=== PATIENT | female | born 1940 | race Two or more races ===

== ENCOUNTER 2018-03-28 14:14 | Emergency (ER) | payer MEDICARE, OTHER ==
[2018-03-28 14:27] VITALS: PULSE 73; RESP 16; TEMP 97.6
[2018-03-28] MEDS ORDERED: MORPHINE SULFATE 2 MG/ML SYRINGE IVP STA (14:28)
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
--- NOTE | 2018-03-28 15:29 | CT ---
EXAMINATION TYPE: CT brain mirtha mistry con DATE OF EXAM: 03/28/2018 COMPARISON: None HISTORY: FALL INJURY CT DLP: 1742 mGycm, Automated exposure control for dose reduction was used. CONTRAST: None CT of the brain is performed utilizing 3 mm thick sections through the posterior fossa and 3 mm thick sections through the remaining calvarium. Study is performed within 24 hours of arrival to the hospital. No abnormal hyperdensity is present to suggest an acute intracranial hemorrhage. No mass lesion is evident. No acute infarcts are evident. Ventricles and sulci are appropriate for the patient age. Paranasal sinuses and mastoid air cells within the [id number] are clear. IMPRESSIONS: 1. No acute intracranial process. CT cervical spine. COMPARISON: 05/14/2016 CT of the cervical spine is performed in the axial plane at 2 mm thick sections. Reconstructed image s in the coronal, and sagittal plane are reviewed on the computer. No acute fractures are evident. There is straightening of the vertebral body alignment. There is cervical fusion C3-C6. Residual disc heights are narrowed Vertebral body heights are preserved. There is severe spinal canal stenosis at the craniovertebral junction there are advanced degenerative changes at the C1-C2 level. Endplate spurring is present causing some anterior thecal sac compression most notably C4-5 level on the right paracentral region. Cord contact is likely present. Uncovertebral joint hypertrophy is cont ributing to foraminal stenosis. IMPRESSIONS: 1. No acute changes within the cervical spine are evident. There are advanced degenerative changes wh ich were present previously. Stenosis and thecal sac compression are present. Greatest stenosis is at the craniovertebral junction.
--- NOTE | 2018-03-28 15:50 | XR ---
EXAMINATION TYPE: XR shoulder complete 3 views LT, XR elbow complete 3 views LT, XR wrist complete 4 views LT DATE OF EXAM: 03/28/2018 COMPARISON: NONE HISTORY: 77-year-old female pain after fall FINDINGS: Left shoulder: Capsular swelling at the AC joint but with no abnormal step-off. Mild degenerative spurring at the gl enohumeral joint and some slight bony irregularity at the greater tuberosity. No acute fracture or di slocation seen. Elbow: Some bony spurring at the medial condyle could represent chronic tendinopathy of the common flexor te ndon. No acute fracture, subluxation, or dislocation. No elbow joint effusion. Wrist: Degenerative spurring at the radiocarpal joint. There is negative ulnar variance. Prominent radial si ded soft tissue swelling with possible large ganglion cyst or mass measuring 2.2 cm. No acute fractur e or dislocation. Degenerative spurring at the first CMC joint and triscaphe joint. IMPRESSION: 1. Left shoulder: Capsular swelling in the AC joint could represent a low-grade joint sprain. Mild gl enohumeral joint OA. No acute osseous abnormality seen. 2. Left elbow: Changes of chronic tendinopathy of the common flexor tendon origin. No acute osseous a bnormality seen. 3. Left wrist: Degenerative changes at the radiocarpal joint and base of the thumb. There is suggesti on of a large 2.2 cm mass or ganglion cyst along the radial aspect of the wrist. Consider ultrasound evaluation and orthopedic referral. No acute osseous abnormality seen.
[2018-03-28 16:40] VITALS: BP 189/90
== END 2018-03-28 16:40 | disposition home or self-care (01) ==
LOC: EC 14:14
DX: S46.912A Strain of unspecified muscle, fascia and tendon at shoulder and upper arm level, left arm, initial encounter (principal); S09.90XA Unspecified injury of head, initial encounter; M48.02 Spinal stenosis, cervical region; H91.90 Unspecified hearing loss, unspecified ear; M67.432 Ganglion, left wrist; R40.2412 Glasgow coma scale score 13-15, at arrival to emergency department; M25.532 Pain in left wrist; I10 Essential (primary) hypertension; Z87.891 Personal history of nicotine dependence; Z79.899 Other long term (current) drug therapy; Z88.5 Allergy status to narcotic agent; Z53.20 Procedure and treatment not carried out because of patient's decision for unspecified reasons; W01.190A Fall on same level from slipping, tripping and stumbling with subsequent striking against furniture, initial encounter; Y93.89 Activity, other specified; Y92.009 Unspecified place in unspecified non-institutional (private) residence as the place of occurrence of the external cause
CPT/HCPCS: 70450; 72125; 99284

== ENCOUNTER → 2020-03-21 | Outpatient (CLI) | payer MEDICARE, OTHER | END | disposition home or self-care (01) | LOC: LABWHC1 10:04 | PROVIDERS: ATTEND Ophthalmology | DX: Z01.812 Encounter for preprocedural laboratory examination (principal) | CPT/HCPCS: U0003; C9803 ==

== ENCOUNTER → 2020-04-10 | Outpatient (CLI) | payer MEDICARE, OTHER | END | disposition home or self-care (01) | LOC: LABWHC1 14:35 | PROVIDERS: ATTEND Ophthalmology | DX: Z01.818 Encounter for other preprocedural examination (principal) | CPT/HCPCS: U0003; C9803 ==

== ENCOUNTER 2023-03-26 20:28 | Emergency (ER) | payer MEDICARE, OTHER ==
[2023-03-26 20:35] VITALS: RESP 18; TEMP 98.7
[2023-03-26] MEDS ORDERED: ACETAMINOPHEN TAB 325 MG TAB PO STA (20:57)
--- NOTE | 2023-03-26 21:18 | XR ---
EXAMINATION TYPE: XR AP view pelvis and 2 views bilateral hips DATE OF EXAM: 03/26/2023 COMPARISON: NONE HISTORY: 82-year-old female pain after fall FINDINGS: Degenerative changes lower lumbar spine. Mild degenerative change of both hips. Osteitis pubis. Left- sided pelvic phlebolith. There is osteopenia limiting evaluation. No displaced fractures seen on eith er side. IMPRESSION: There is mild degenerative change bilaterally. Osteopenia limiting the evaluation. No dis placed fracture seen. If the patient is nonweightbearing and more sensitive evaluation is indicated, MRI can be considered.
--- NOTE | 2023-03-26 22:04 | CT ---
EXAMINATION TYPE: CT brain mirtha mistry con DATE OF EXAM: 03/26/2023 COMPARISON: 03/28/2018 HISTORY: 82-year-old female Pain after fall. AMS. CT DLP: 1514.5 mGycm Automated exposure control for dose reduction was used. Technique: Examination of the head was done in axial plane without intravenous contrast. Coronal and sagittal reconstructions performed. CT of the cervical spine was obtained in axial plane without intravenous injection of contrast mater ial. Coronal and sagittal reformatted images were obtained from the axial views for evaluation of f ractures, spinal alignment and canal. FINDINGS: Head: There is no evidence of acute intracranial hemorrhage, acute ischemic changes, mass, mass-effect, or extra-axial fluid collection. There is no effacement of cerebral sulci or basal subarachnoid cister ns. There is no hydrocephalus. There is no midline shift. Adame-white matter distinction is preserv ed. Slight rightward nasal septal deviation. Paranasal sinuses and mastoid air cells well pneumatized. Cervical spine: There is excessive motion throughout which degrades the examination. 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 Additional interbody ankylosis C7-T1. There is advanced degenerative change at the C1-C2 lateral mass articulation. Protuberance of the den s to the anterior rim of the foramen magnum, advanced degenerative change C1 dens articulation, and b cristy ankylosis has now developed between the anterior arch of C1 and the clivus. No acute fracture is identified. Posterior osteophytic ridging is due to variable mild canal narrowing throughout. Possibl e moderate spinal canal stenosis C1-C2. Vertebral moderate to severe neuroforaminal stenoses throughout. The degree of motion limits the eval uation. No obvious acute fracture seen. Sagittal and coronal reformatted images confirm above findings. COMBINED IMPRESSION: 1. No acute intracranial abnormality seen. 2. Progressive degenerative change at both the craniocervical junction and C1-C2 articulation. 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 Solid interbody ankylosi s across C2-C6 levels and additional interbody ankylosis C7-T1. No acute fracture or malalignment finesse beck seen. Extensive patient motion limits the evaluation.
--- NOTE | 2023-03-26 23:07 | ED ---
Fall HPI - General Chief Complaint: Fall Stated Complaint: Fall Time Seen by Provider: 03/26/23 20:47 Source: EMS Mode of arrival: EMS - History of Present Illness Initial Comments: Patient is an 82-year-old female who presents the emergency department for fall. According to EMS patient had an unwitnessed fall in her apartment building. She is not on blood thinners. Patient states she tripped and hit the back of her head on ground. She has mild headache. She also complains of mild hip pain on both sides. Denies visual symptoms, nausea, vomiting, chest pain, shortness of breath. - Related Data Home Medications Medication Instructions Recorded Confirmed Naproxen 500 mg PO BID PRN 03/28/18 03/28/18 Sertraline [Zoloft] 50 mg PO HS 03/28/18 03/28/18 lisinopriL [Prinivil] 20 mg PO HS 03/28/18 03/28/18 tiZANidine [Zanaflex] 4 mg PO Q6H PRN 03/28/18 03/28/18 Previous Rx's Medication Instructions Recorded Acetaminophen Tab [Tylenol] 650 mg PO Q4H PRN #30 tab 03/26/23 Allergies Allergy/AdvReac Type Severity Reaction Status Date / Time morphine AdvReac Nausea & Verified 03/26/23 20:35 Vomiting Review of Systems ROS Statement: Those systems with pertinent positive or pertinent negative responses have been documented in the HPI. ROS Other: All systems not noted in ROS Statement are negative. Past Medical History Past Medical History: Hypertension History of Any Multi-Drug Resistant Organisms: None Reported Past Surgical History: Cholecystectomy, Hysterectomy Additional Past Surgical History / Comment(s): tumor removal, Past Psychological History: No Psychological Hx Reported Smoking Status: Never smoker Past Alcohol Use History: None Reported Past Drug Use History: None Reported General Exam General appearance: alert Head exam: Present: atraumatic, normocephalic, normal inspection Eye exam: Present: normal appearance, PERRL, EOMI. Absent: scleral icterus, conjunctival injection, periorbital swelling Neck exam: Present: normal inspection, full ROM. Absent: tenderness, meningismus, lymphadenopathy Respiratory exam: Present: normal lung sounds bilaterally. Absent: respiratory distress, wheezes, rales, rhonchi, stridor Cardiovascular Exam: Present: regular rate, normal rhythm, normal heart sounds. Absent: systolic murmur, diastolic murmur, rubs, gallop, clicks Left Hip exam: Present: normal inspection, full ROM. Absent: tenderness, swelling Upper Leg exam: Present: normal inspection, full ROM. Absent: tenderness, swelling Right Hip exam: Present: normal inspection, full ROM. Absent: tenderness, swelling Upper Leg exam: Present: normal inspection, full ROM. Absent: tenderness, swelling Neurovascular tendon exam: Present: no vascular compromise Gait: observed and normal Neurological exam: Present: alert Psychiatric exam: Present: normal affect, normal mood Skin exam: Present: warm, dry, intact, normal color. Absent: rash Course Vital Signs 03/26/23 03/26/23 20:29 23:46 Temperature 98.7 F Pulse Rate 87 80 Respiratory 18 18 Rate Blood Pressure 176/79 170/82 O2 Sat by Pulse 97 98 Oximetry Medical Decision Making - Medical Decision Making Was pt. sent in by a medical professional or institution (, PA, HAND BINDER CUTTER, urgent care, hospital, or long-term...) When possible be specific @ -No Did you speak to anyone other than the patient for history (EMS, parent, family, police, friend...)? What history was obtained from this source @EMS Did you review nursing and triage notes (agree or disagree)? Why? @ -I reviewed and agree with nursing and triage notes Were old charts reviewed (outside hosp., previous admission, EMS record, old EKG, old radiological studies, urgent care reports/EKG's, long-term records)? Report findings @ -No old charts were reviewed Differential Diagnosis (chest pain, altered mental status, abdominal pain women, abdominal pain men, vaginal bleeding, weakness, fever, dyspnea, syncope, headache, dizziness, GI bleed, back pain, seizure, CVA, palpatations, mental health)? @ -Differential Headache: Migraine, tension, cluster, carbon monoxide, central venous thrombosis, pension karma temporal arteritis, acute closure glaucoma, intercranial hemorrhage, mastoiditis, sinusitis, head injury, this is not meant to be an all-inclusive list. EKG interpreted by me (3pts min.). @ -As above X-rays interpreted by me (1pt min.). @ -No fracture or dislocation of the bilateral hips and pelvis CT interpreted by me (1pt min.). @ No acute intracranial process, no acute fracture or malalignment in the cervical spine U/S interpreted by me (1pt. min.). @ -None done What testing was considered but not performed or refused? (CT, X-rays, U/S, labs)? Why? @ -None What meds were considered but not given or refused? Why? @ -None Did you discuss the management of the patient with other professionals (professionals i.e. DrCj, PA, HAND BINDER CUTTER, lab, RT, psych nurse, social media content specialist, senior research manager, teacher, affirmative action officer, registered nurse hh case manager)? Give summary @ -No Was smoking cessation discussed for >3mins.? @ -No Was critical care preformed (if so, how long)? @ -No Were there social determinants of health that impacted care today? How? (Homelessness, low income, unemployed, alcoholism, drug addiction, transportation, low edu. Level, literacy, decrease access to med. care, senior living, rehab)? @ -No Was there de-escalation of care discussed even if they declined (Discuss DNR or withdrawal of care, Hospice)? DNR status @ -No What co-morbidities impacted this encounter? (DM, HTN, Smoking, COPD, CAD, Cancer, CVA, ARF, Chemo, Hep., AIDS, mental health diagnosis, sleep apnea, morbid obesity)? @ -None Was patient admitted / discharged? Hospital course, mention meds given and route, prescriptions, significant lab abnormalities, going to OR and other pertinent info. @Patient presented after fall. Physical exam unremarkable. CT interpreted by myself showing no acute intracranial process, no acute fracture or malalignment the cervical spine. X-ray interpreted by myself showing no fracture dislocation of the bilateral hips and pelvis. Patient given Tylenol with improvement of pain. She is able to ambulate without difficulty and will be discharged home with Tylenol Undiagnosed new problem with uncertain prognosis? @ -No Drug Therapy requiring intensive monitoring for toxicity (Heparin, Nitro, Insulin, Cardizem)? @ -No Were any procedures done? @ -No Diagnosis/symptom? @ Fall, hip pain, headache Acute, or Chronic, or Acute on Chronic? @ -[Acute Uncomplicated (without systemic symptoms) or Complicated (systemic symptoms)? @ -Uncomplicated Side effects of treatment? @ -No Exacerbation, Progression, or Severe Exacerbation? @ -No Poses a threat to life or bodily function? How? (Chest pain, [place], [place], pneumonia, PE, COPD, DKA, ARF, appy, cholecystitis, CVA, Diverticulitis, Homicidal, Suicidal, threat to staff... and all critical care pts) @ -No Dr. Burton is my attending Disposition Clinical Impression: Fall, Hip pain, Head ache Disposition: HOME SELF-CARE Condition: Good Instructions (If sedation given, give patient instructions): Fall Prevention for Older Adults (ED), P.R.I.C.E. Treatment (ED) Additional Instructions: Ice injury. Take Tylenol as needed for pain. Follow-up with primary care provider in one to 2 days. Return to the emergency department if you experience new, concerning, or worsening symptoms Prescriptions: Acetaminophen Tab [Tylenol] 650 mg PO Q4H PRN #30 tab PRN Reason: Pain Is patient prescribed a controlled substance at d/c from ED?: No Referrals: None,Stated [Primary Care Provider] - 1-2 days
[2023-03-26 23:48] VITALS: BP 170/82; PULSE 80
== END 2023-03-26 23:47 | disposition home or self-care (01) ==
LOC: EC 20:28
DX: R51.9 Headache, unspecified (principal); M25.552 Pain in left hip; M25.551 Pain in right hip; I10 Essential (primary) hypertension; Z88.5 Allergy status to narcotic agent; Z79.899 Other long term (current) drug therapy; W01.198A Fall on same level from slipping, tripping and stumbling with subsequent striking against other object, initial encounter; Y92.039 Unspecified place in apartment as the place of occurrence of the external cause
CPT/HCPCS: 70450; 72125; 73521; 99285

== ENCOUNTER 2024-08-27 16:16 | Inpatient (IN) | payer MEDICARE, OTHER ==
[2024-08-27 17:48] LABS: Basophils # (A) 0.1 k/uL (0-0.2); Basophils % (A) 1 %; Eosinophils # (A) 0.1 k/uL (0-0.7); Eosinophils % (A) 1 %; HCT 45.8 % (34.0-46.0); HGB 15.3 gm/dL (11.4-16.0); Lymphocytes # (A) 2.1 k/uL (1.0-4.8); Lymphocytes % (A) 24 %; MCH 29.3 pg (25.0-35.0); MCHC 33.5 g/dL (31.0-37.0); MCV 87.5 fL (80.0-100.0); Mean Platelet Volume 6.7; Monocytes # (A) 0.5 k/uL (0-1.0); Monocytes % (A) 5 %; Neutrophils # (A) 5.9 k/uL (1.3-7.7); Neutrophils % (A) 68 %; Platelet Count 354 k/uL (150-450); RBC 5.23 m/uL (3.80-5.40); RDW 13.1 % (11.5-15.5); WBC 8.7 k/uL (3.8-10.6)
[2024-08-27 18:06] LABS: ALT 26 U/L (4-34); AST 28 U/L (14-36); African American GFR (CKD) 36 (>60 ml/min/1.73 sqM); Albumin 4.3 g/dL (3.5-5.0); Alkaline Phosphatase 44 U/L (38-126); Anion Gap 17 mmol/L; Blood Urea Nitrogen 31 mg/dL (7-17); Calcium 9.8 mg/dL (8.4-10.2); Carbon Dioxide 17 mmol/L (22-30); Chloride 105 mmol/L (98-107); Creatine Kinase 87 U/L (30-135); Glucose 107 mg/dL (74-99); Magnesium 1.9 mg/dL (1.6-2.3); Non-African American GFR(CKD) 31 (>60 ml/min/1.73 sqM); Potassium 3.5 mmol/L (3.5-5.1); Sodium 139 mmol/L (137-145); Total Bilirubin 1.8 mg/dL (0.2-1.3); Total Protein 6.9 g/dL (6.3-8.2)
[2024-08-27 18:09] LABS: Prothrombin Time 11.3 sec (10.0-12.5)
[2024-08-27 18:10] LABS: Appearance,Urine Cloudy (Clear); Bacteria,Urine Many /hpf; Bilirubin,Urine Negative (Negative); Blood,Urine Negative (Negative); Color,Urine Yellow; Glucose,Urine (UA) Negative (Negative); Hyaline Casts,Urine 27 /lpf (0-2); Ketones,Urine Negative (Negative); Leukocyte Esterase,Urine Small (Negative); Mucus,Urine Many /hpf; Nitrite,Urine Positive (Negative); PH, Urine 5.5 (5.0-8.0); Protein,Urine 1+ (Negative); RBC,Urine <1 /hpf (0-5); Specific Gravity,Urine 1.026 (1.001-1.035); Squamous Epithelial Cell,Urine 3 /hpf (0-4); Urobilinogen,Urine <2.0 mg/dL (<2.0); WBC,Urine 22 /hpf (0-5)
[2024-08-27 18:11] LABS: Partial Thromboplastin Time 21.8 sec (22.0-30.0)
--- NOTE | 2024-08-27 18:35 | XR ---
EXAMINATION TYPE: XR chest 2V DATE OF EXAM: 08/27/2024 6:20 PM COMPARISON: None CLINICAL INDICATION: Female, 83 years old with history of Weakness; [facility] TECHNIQUE: XR chest 2V Frontal and lateral views of the chest. FINDINGS: Lungs/Pleura: There is no evidence of pleural effusion, focal consolidation, or pneumothorax. Pulmonary vascularity: Unremarkable. Heart/mediastinum: Cardiomediastinal silhouette is unremarkable. Musculoskeletal: Degenerative changes of the shoulder joints. IMPRESSION: No acute cardiopulmonary disease/process. [facility], , 08/27/2024 6:32 PM
--- NOTE | 2024-08-27 18:36 | XR ---
EXAMINATION TYPE: XR shoulder complete LT DATE OF EXAM: 08/27/2024 6:21 PM COMPARISON: None CLINICAL INDICATION: Female, 83 years old with history of pain; PH[facility], pain TECHNIQUE: XR shoulder complete LT; examined in AP, internally rotated and scapular Y projections. FINDINGS: No evidence of acute osseous pathology, joint dislocation, or soft tissue swelling. The remaining po rtions of the visualized chest are unremarkable. Degeneration changes of the acromion, distal clavic le with osteophyte formation. There is osteophyte formation of the glenoid and humeral head. There is joint space narrowing of glenohumeral joint with [id number] articulation of the glenohumeral joint . IMPRESSION: 1. No acute osseous pathology. 2. Severe left shoulder osteoarthrosis. [facility], , 08/27/2024 6:33 PM
[2024-08-27] MEDS: cefTRIAXone IN SWFI 1,000 MG/10 ML SYRINGE IVP STA (18:54)
[2024-08-27] MEDS: SODIUM CHLORIDE 0.9% 1,000 ML IV STA (18:55)
[2024-08-27] MEDS: ACETAMINOPHEN TAB 500 MG TAB PO STA (18:58)
[2024-08-27] MEDS: LORazepam 2 MG/ML INJ IV STA (18:58)
--- NOTE | 2024-08-27 19:07 | ED ---
Nausea/Vomiting/Diarrhea HPI - General Chief complaint: Nausea/Vomiting/Diarrhea Stated complaint: NVD Time Seen by Provider: 08/27/24 16:27 Source: patient, family, EMS, RN notes reviewed Mode of arrival: EMS Limitations: altered mental status - History of Present Illness Initial comments: This is an 83-year-old female who presents to the emergency department for diarrhea and altered mental status. Patient lives at [facility] and EMS was called as the patient has reportedly been increasingly agitated and violent with staff. She is also increasingly confused over the last couple of days. They also report the patient having diarrhea, but do not give specifics. Patient is very irritable and agitated at this time. Reports diarrhea but does not give any additional history. She is complaining of left shoulder pain. MD complaint: diarrhea - Related Data Home Medications Medication Instructions Recorded Confirmed Naproxen 500 mg PO BID PRN 03/28/18 03/28/18 Sertraline [Zoloft] 50 mg PO HS 03/28/18 03/28/18 lisinopriL [Prinivil] 20 mg PO HS 03/28/18 03/28/18 tiZANidine [Zanaflex] 4 mg PO Q6H PRN 03/28/18 03/28/18 Previous Rx's Medication Instructions Recorded Acetaminophen Tab [Tylenol] 650 mg PO Q4H PRN #30 tab 03/26/23 Allergies Allergy/AdvReac Type Severity Reaction Status Date / Time morphine AdvReac Nausea & Verified 08/27/24 16:25 Vomiting Review of Systems ROS Statement: Those systems with pertinent positive or pertinent negative responses have been documented in the HPI. ROS Other: All systems not noted in ROS Statement are negative. Past Medical History Past Medical History: Hypertension Additional Past Medical History / Comment(s): cerebral palsy History of Any Multi-Drug Resistant Organisms: None Reported Past Surgical History: Cholecystectomy, Hysterectomy Additional Past Surgical History / Comment(s): tumor removal, Past Psychological History: No Psychological Hx Reported Smoking Status: Never smoker Past Alcohol Use History: None Reported Past Drug Use History: None Reported General Exam Limitations: altered mental status General appearance: alert, in no apparent distress Head exam: Present: atraumatic, normocephalic, normal inspection Respiratory exam: Present: normal lung sounds bilaterally. Absent: respiratory distress, wheezes, rales, rhonchi, stridor Cardiovascular Exam: Present: regular rate, normal rhythm GI/Abdominal exam: Present: soft, normal bowel sounds. Absent: distended, tenderness, guarding, rebound, rigid Neurological exam: Present: alert Psychiatric exam: Present: normal affect, normal mood Skin exam: Present: warm, dry, intact, normal color. Absent: rash Course Vital Signs 08/27/24 08/27/24 16:17 18:52 Pulse Rate 87 80 Respiratory 20 18 Rate Blood Pressure 157/75 O2 Sat by Pulse 97 98 Oximetry Procedures - [place] Protocol (Time Out) Nurse: Krystin Estrada Medical Decision Making - Medical Decision Making This is an 83-year-old female who presents to the emergency department for conf usion and diarrhea. Was pt. sent in by a medical professional or institution? @ -No Did you speak to anyone other than the patient for history? @ -EMS and staff at [facility] provided the majority of the history. Did you review nursing and triage notes? @ -Yes, and I agree, it is accurate with regards to the patient's symptoms. Were old charts reviewed? @ -No Differential Diagnosis? @ -Differential Altered Mental Status: Hypoglycemia, DKA, hypercapnia, ETOH, overdose, CO poisoning, trauma, myxedema coma, HTN encephalopathy, infection, encephalitis, psychosis, intercranial hemorrhage, hepatic encephalopathy, meningitis, CVA, this is not meant to be an all-inclusive list EKG interpreted by me (3pts min.)? @ -EKG interpreted by me demonstrating the following: Sinus rhythm. Ventricular rate 83 bpm, ME interval 146 ms, QRS duration 119 ms, QTc 443 ms. X-rays interpreted by me (1pt min.)? @ -Chest x-ray obtained, my interpretation identifies no localized consolidations or infiltrates. X-ray of the left shoulder obtained. My interpretation identifies no acute fractures. CT interpreted by me (1pt min.)? @ -CT scan of the brain obtained. My interpretation identifies no evidence of acute intracranial hemorrhage. U/S interpreted by me (1pt. min.)? @ -Not obtained What testing was considered but not performed? (CT, X-rays, U/S, labs)? Why? @ -None What meds were considered but not given? Why? @ -None Did you discuss the management of the patient with other professionals? @ -Yes, Juana Jones with [facility], who accepts the patient for admission Did you reconcile home meds? @ -No Was smoking cessation discussed for >3mins.? @ -No Was critical care preformed (if so, how long)? @ -No Were there social determinants of health that impacted care today? How? (Homelessness, low income, unemployed, alcoholism, drug addiction, transportation, low edu. Level, literacy, decrease access to med. care, long-term, rehab)? @ -No Was there de-escalation of care discussed even if they declined? (Discuss DNR or withdrawal of care, Hospice)? @ -No What co-morbidities impacted this encounter? (DM, HTN, Smoking, COPD, CAD, Cancer, CVA, Hep., AIDS, mental health diagnosis, sleep apnea, morbid obesity)? @ -Cerebral palsy, HTN Was patient admitted / discharged? @ -Admitted. Lab work demonstrates signs of dehydration and an elevated lactic acid of 2.7. Urinalysis consistent with infection and urine was sent for culture. X-ray of the chest and left shoulder revealed no acute process. CT sc an of the brain obtained as well revealing no acute findings. Patient treated with IV fluids and started on 1 g of ceftriaxone daily. We tried to contact the facility where patient lives, [facility]. However, we were not able to get anybody on the phone to see if patient could be sent back and they were able to care for her in her current state. She also does not have a castro or ability to get into her apartment there. Patient subsequently admitted to medicine for altered mental status with UTI. Case discussed with ED attending Dr. Burton. Undiagnosed new problem with uncertain prognosis? @ -None Drug Therapy requiring intensive monitoring for toxicity (Heparin, Nitro, Insulin, Cardizem)? @ -None Were any procedures done? @ -None Diagnosis/symptom? @ -UTI, altered mental status Acute, or Chronic, or Acute on Chronic? @ -Acute Uncomplicated (without systemic symptoms) or Complicated (systemic symptoms)? @ -Complicated Side effects of treatment? @ -None Exacerbation, Progression, or Severe Exacerbation] @ -Not applicable Poses a threat to life or bodily function? @ -Yes, her behavior is interfering with her ability to function - Lab Data Result diagrams: 08/27/24 17:36 08/27/24 17:36 Lab Results 01/08/27/24 08/27/24 Range/Units 07:45 17:36 17:36 WBC 8.7 (3.8-10.6) k/uL RBC 5.23 (3.80-5.40) m/uL Hgb 15.3 (11.4-16.0) gm/dL Hct 45.8 (34.0-46.0) % MCV 87.5 (80.0-100.0) fL MCH 29.3 (25.0-35.0) pg MCHC 33.5 (31.0-37.0) g/dL RDW 13.1 (11.5-15.5) % Plt Count 354 (150-450) k/uL MPV 6.7 Neutrophils % 68 % Lymphocytes % 24 % Monocytes % 5 % Eosinophils % 1 % Basophils % 1 % Neutrophils # 5.9 (1.3-7.7) k/uL Lymphocytes # 2.1 (1.0-4.8) k/uL Monocytes # 0.5 (0-1.0) k/uL Eosinophils # 0.1 (0-0.7) k/uL Basophils # 0.1 (0-0.2) k/uL PT 11.3 (10.0-12.5) sec INR 1.0 (<1.2) APTT 21.8 L (22.0-30.0) sec Sodium (137-145) mmol/L Potassium (3.5-5.1) mmol/L Chloride (98-107) mmol/L Carbon Dioxide (22-30) mmol/L Anion Gap mmol/L BUN (7-17) mg/dL Creatinine (0.52-1.04) mg/dL Est GFR (CKD-EPI)AfAm (>60 ml/min/1.73 sqM) Est GFR (CKD-EPI)NonAf (>60 ml/min/1.73 sqM) Glucose (74-99) mg/dL Lactic Ac Sepsis Rflx Plasma Lactic Acid Carlos Manuel (0.7-2.0) mmol/L Calcium (8.4-10.2) mg/dL Phosphorus (2.5-4.5) mg/dL Magnesium (1.6-2.3) mg/dL Total Bilirubin (0.2-1.3) mg/dL AST (14-36) U/L ALT (4-34) U/L Alkaline Phosphatase (38-126) U/L Creatine Kinase (30-135) U/L Troponin I (0.000-0.034) ng/mL Total Protein (6.3-8.2) g/dL Albumin (3.5-5.0) g/dL Urine Color Yellow Urine Appearance Cloudy H (Clear) Urine pH 5.5 (5.0-8.0) Ur Specific [place] 1.026 (1.001-1.035) Urine Protein 1+ H (Negative) Urine Glucose (UA) Negative (Negative) Urine Ketones Negative (Negative) Urine Blood Negative (Negative) Urine Nitrite Positive H (Negative) Urine Bilirubin Negative (Negative) Urine Urobilinogen <2.0 (<2.0) mg/dL Ur Leukocyte Esterase Small H (Negative) Urine RBC <1 (0-5) /hpf Urine WBC 22 H (0-5) /hpf Ur Squamous Epith Cells 3 (0-4) /hpf Urine Bacteria Many H (None) /hpf Hyaline Casts 27 H (0-2) /lpf Urine Mucus Many H (None) /hpf 08/27/24 08/27/24 08/27/24 Range/Units 17:36 17:36 17:36 WBC (3.8-10.6) k/uL RBC (3.80-5.40) m/uL Hgb (11.4-16.0) gm/dL Hct (34.0-46.0) % MCV (80.0-100.0) fL MCH (25.0-35.0) pg MCHC (31.0-37.0) g/dL RDW (11.5-15.5) % Plt Count (150-450) k/uL MPV Neutrophils % % Lymphocytes % % Monocytes % % Eosinophils % % Basophils % % Neutrophils # (1.3-7.7) k/uL Lymphocytes # (1.0-4.8) k/uL Monocytes # (0-1.0) k/uL Eosinophils # (0-0.7) k/uL Basophils # (0-0.2) k/uL PT (10.0-12.5) sec INR (<1.2) APTT (22.0-30.0) sec Sodium 139 (137-145) mmol/L Potassium 3.5 (3.5-5.1) mmol/L Chloride 105 (98-107) mmol/L Carbon Dioxide 17 L (22-30) mmol/L Anion Gap 17 mmol/L BUN 31 H (7-17) mg/dL Creatinine 1.54 H (0.52-1.04) mg/dL Est GFR (CKD-EPI)AfAm 36 (>60 ml/min/1.73 sqM) Est GFR (CKD-EPI)NonAf 31 (>60 ml/min/1.73 sqM) Glucose 107 H (74-99) mg/dL Lactic Ac Sepsis Rflx Plasma Lactic Acid Carlos Manuel 2.4 H* (0.7-2.0) mmol/L Calcium 9.8 (8.4-10.2) mg/dL Phosphorus 3.0 (2.5-4.5) mg/dL Magnesium 1.9 (1.6-2.3) mg/dL Total Bilirubin 1.8 H (0.2-1.3) mg/dL AST 28 (14-36) U/L ALT 26 (4-34) U/L Alkaline Phosphatase 44 (38-126) U/L Creatine Kinase 87 (30-135) U/L Troponin I <0.012 (0.000-0.034) ng/mL Total Protein 6.9 (6.3-8.2) g/dL Albumin 4.3 (3.5-5.0) g/dL Urine Color Urine Appearance (Clear) Urine pH (5.0-8.0) Ur Specific [place] (1.001-1.035) Urine Protein (Negative) Urine Glucose (UA) (Negative) Urine Ketones (Negative) Urine Blood (Negative) Urine Nitrite (Negative) Urine Bilirubin (Negative) Urine Urobilinogen (<2.0) mg/dL Ur Leukocyte Esterase (Negative) Urine RBC (0-5) /hpf Urine WBC (0-5) /hpf Ur Squamous Epith Cells (0-4) /hpf Urine Bacteria (None) /hpf Hyaline Casts (0-2) /lpf Urine Mucus (None) /hpf 08/27/24 Range/Units 18:20 WBC (3.8-10.6) k/uL RBC (3.80-5.40) m/uL Hgb (11.4-16.0) gm/dL Hct (34.0-46.0) % MCV (80.0-100.0) fL MCH (25.0-35.0) pg MCHC (31.0-37.0) g/dL RDW (11.5-15.5) % Plt Count (150-450) k/uL MPV Neutrophils % % Lymphocytes % % Monocytes % % Eosinophils % % Basophils % % Neutrophils # (1.3-7.7) k/uL Lymphocytes # (1.0-4.8) k/uL Monocytes # (0-1.0) k/uL Eosinophils # (0-0.7) k/uL Basophils # (0-0.2) k/uL PT (10.0-12.5) sec INR (<1.2) APTT (22.0-30.0) sec Sodium (137-145) mmol/L Potassium (3.5-5.1) mmol/L Chloride (98-107) mmol/L Carbon Dioxide (22-30) mmol/L Anion Gap mmol/L BUN (7-17) mg/dL Creatinine (0.52-1.04) mg/dL Est GFR (CKD-EPI)AfAm (>60 ml/min/1.73 sqM) Est GFR (CKD-EPI)NonAf (>60 ml/min/1.73 sqM) Glucose (74-99) mg/dL Lactic Ac Sepsis Rflx Y Plasma Lactic Acid Carlos Manuel (0.7-2.0) mmol/L Calcium (8.4-10.2) mg/dL Phosphorus (2.5-4.5) mg/dL Magnesium (1.6-2.3) mg/dL Total Bilirubin (0.2-1.3) mg/dL AST (14-36) U/L ALT (4-34) U/L Alkaline Phosphatase (38-126) U/L Creatine Kinase (30-135) U/L Troponin I (0.000-0.034) ng/mL Total Protein (6.3-8.2) g/dL Albumin (3.5-5.0) g/dL Urine Color Urine Appearance (Clear) Urine pH (5.0-8.0) Ur Specific [place] (1.001-1.035) Urine Protein (Negative) Urine Glucose (UA) (Negative) Urine Ketones (Negative) Urine Blood (Negative) Urine Nitrite (Negative) Urine Bilirubin (Negative) Urine Urobilinogen (<2.0) mg/dL Ur Leukocyte Esterase (Negative) Urine RBC (0-5) /hpf Urine WBC (0-5) /hpf Ur Squamous Epith Cells (0-4) /hpf Urine Bacteria (None) /hpf Hyaline Casts (0-2) /lpf Urine Mucus (None) /hpf - Radiology Data Radiology results: report reviewed, image reviewed Disposition Clinical Impression: UTI (urinary tract infection), Altered mental status Disposition: ADMITTED IP TO THIS HOSP
--- NOTE | 2024-08-27 19:58 | CT ---
EXAMINATION TYPE: CT brain wo con DATE OF EXAM: 08/27/2024 7:51 PM COMPARISON: 03/26/2023. CLINICAL INDICATION: Female, 83 years old with history of Confusion, AMS. Confused. TECHNIQUE: Brain: Axial CT images of the brain were obtained with coronal and sagittal reformats created and rev iewed. Contrast used: None. Oral contrast used: None. CT DLP: 1299.4 mGycm, Automated exposure control for dose reduction was used. FINDINGS: Brain: Extra-axial spaces: No abnormal extra-axial fluid collections. Ventricular system: Dilatation in proportion to cerebral atrophy. Cerebral parenchyma: Cerebral atrophy. No acute intraparenchymal hemorrhage or mass effect. The martinez -white junction is well differentiated. Scattered hypoattenuating areas are seen within the white mat ter. Cerebellum: Unremarkable. Mass effect: No evidence of midline shift. Intracranial vasculature: unremarkable Soft tissues: Normal. Calvarium/osseous structures: No depressed skull fracture. Paranasal sinuses and mastoid air cells: Mild scattered paranasal sinus disease. Visualized orbits: Orbital contents are intact. IMPRESSION: 1. No acute intracranial process. 2. Nonspecific white matter changes, likely secondary to chronic small vessel ischemic disease. [facility], , 08/27/2024 7:56 PM
[2024-08-27] MEDS ORDERED: NALOXONE 0.4 MG/ML 1 ML VIAL IV PRN (20:27)
[2024-08-27] MEDS: SODIUM CHLORIDE 0.9% 1,000 ML IV SCH (21:16)
[2024-08-28] MEDS: LORazepam 0.5 MG TAB PO PRN (06:03)
[2024-08-28 08:44] LABS: African American GFR (CKD) 40 (>60 ml/min/1.73 sqM); Anion Gap 14 mmol/L; Blood Urea Nitrogen 29 mg/dL (7-17); Calcium 9.1 mg/dL (8.4-10.2); Carbon Dioxide 14 mmol/L (22-30); Chloride 108 mmol/L (98-107); Glucose 123 mg/dL (74-99); Non-African American GFR(CKD) 35 (>60 ml/min/1.73 sqM); Potassium 3.4 mmol/L (3.5-5.1); Sodium 136 mmol/L (137-145)
--- NOTE | 2024-08-28 09:22 | P.HPIM ---
History of Present Illness This is a pleasant 83 years old female with past medical history of multiple medical problems. Patient has history of cerebral palsy. She is from [facility]. She was brought because of fall and possible diarrhea for 2 days. When I asked the patient why she came to the hospital she said I do not know maybe I fell Patient can of poor historian, she does not know where she is but she can tell it is 2024. She thought the president is ley, patient also have muffled speech related to her history of cerebral palsy which limits her ability to communicate. However patient calm and follow commands easily. She is little agitated. She denies any specific symptoms. No chest pain or dyspnea. No GI symptoms she denies diarrhea abdominal pain or vomiting although on admission states that she has diarrhea. Also she denies urinary complaint like urgency or dysuria. No headache or dizziness or new weakness or numbness Patient denies smoking or illicit drugs Patient sitting at the bed age, slightly agitated and anxious and she keeps her left upper extremity hanging lower than the right side. On admission patient hemodynamically stable and afebrile She has elevated creatinine 1.5 with baseline 0.9 and 1.0. Rest of labs including CBC, BMP, LFT, INR, troponin were unremarkable Urine analysis is slightly abnormal the suspicion of infection is there but patient is asymptomatic Elevated lactic acid at 2.4 came back to normal at 1.1 Chest x-ray is negative Shoulder x-ray showing severe shoulder osteoarthritis EKG showing sinus rhythm at [address]-T changes CT of the brain is negative for acute process Of note the patient has to contact her sister and she remembered her name Mari Hernandez. I called Ms. Guerra her sister and she told me she is in [place] so she cannot come and see her but then the line went off, I called again and left a message to call back Review of Systems Review of systems CONSTITUTIONAL: No fever, no malaise, no fatigue. HEENT: No recent visual problems or hearing problems. Denied any sore throat. CARDIOVASCULAR: No orthopnea, PND, no palpitations, no syncope. PULMONARY: No shortness of breath, no cough, no hemoptysis. GASTROINTESTINAL: No diarrhea, no nausea, no vomiting, no abdominal pain. Normoactive bowel sounds. NEUROLOGICAL: No headaches, no weakness, no numbness. HEMATOLOGICAL: Denies any bleeding or petechiae. GENITOURINARY: Denies any burning micturition, frequency, or urgency. MUSCULOSKELETAL/RHEUMATOLOGICAL: Denies any joint pain, swelling, or any muscle pain. ENDOCRINE: Denies any polyuria or polydipsia. Past Medical History Past Medical History: Hypertension Additional Past Medical History / Comment(s): cerebral palsy History of Any Multi-Drug Resistant Organisms: None Reported Past Surgical History: Cholecystectomy, Hysterectomy Additional Past Surgical History / Comment(s): tumor removal, Past Psychological History: No Psychological Hx Reported Smoking Status: Never smoker Past Alcohol Use History: None Reported Past Drug Use History: None Reported Medications and Allergies Home Medications Medication Instructions Recorded Confirmed Type No Known Home Medications 08/28/24 08/28/24 History Allergies Allergy/AdvReac Type Severity Reaction Status Date / Time morphine AdvReac Nausea & Verified 08/28/24 09:20 Vomiting Physical Exam Vitals: Vital Signs Temp Pulse Pulse Resp BP BP Pulse Ox 08/28/24 08:04 82 20 104/84 96 08/28/24 02:00 98.3 F 76 18 129/85 98 08/27/24 18:52 80 18 157/75 98 08/27/24 16:17 87 20 97 Intake and Output 08/27/24 08/28/24 08/28/24 22:59 06:59 14:59 Intake Total 440 Balance 440 Intake: Oral 440 Other: # Voids 5 Weight 79.379 kg -GENERAL: The patient is alert and oriented x1-2 partial, not in any acute distress. Well developed, well nourished. HEENT: Pupils are round and equally reacting to light. EOMI. No scleral icterus. No conjunctival pallor. Normocephalic, atraumatic. No pharyngeal erythema. No thyromegaly. CARDIOVASCULAR: S1 and S2 present. No murmurs, rubs, or gallops. PULMONARY: Chest is clear to auscultation, no wheezing , no crackles. ABDOMEN: Soft, nontender, nondistended, normoactive bowel sounds. No palpable organomegaly. -MUSCULOSKELETAL: No joint swelling or deformity. 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 NEUROLOGICAL: Gross neurological examination did not reveal any focal deficits. SKIN: No rashes. no petechiae. Results CBC & Chem 7: 08/27/24 17:36 08/28/24 07:54 Labs: Abnormal Lab Results - Last 24 Hours (Table) 08/27/24 08/27/24 08/27/24 Range/Units 07:45 17:36 17:36 APTT 21.8 L (22.0-30.0) sec Sodium (137-145) mmol/L Potassium (3.5-5.1) mmol/L Chloride (98-107) mmol/L Carbon Dioxide 17 L (22-30) mmol/L BUN 31 H (7-17) mg/dL Creatinine 1.54 H (0.52-1.04) mg/dL Glucose 107 H (74-99) mg/dL Plasma Lactic Acid Carlos Manuel (0.7-2.0) mmol/L Total Bilirubin 1.8 H (0.2-1.3) mg/dL Urine Appearance Cloudy H (Clear) Urine Protein 1+ H (Negative) Urine Nitrite Positive H (Negative) Ur Leukocyte Esterase Small H (Negative) Urine WBC 22 H (0-5) /hpf Urine Bacteria Many H (None) /hpf Hyaline Casts 27 H (0-2) /lpf Urine Mucus Many H (None) /hpf 08/27/24 08/28/24 Range/Units 17:36 07:54 APTT (22.0-30.0) sec Sodium 136 L (137-145) mmol/L Potassium 3.4 L (3.5-5.1) mmol/L Chloride 108 H (98-107) mmol/L Carbon Dioxide 14 L (22-30) mmol/L BUN 29 H (7-17) mg/dL Creatinine 1.42 H (0.52-1.04) mg/dL Glucose 123 H (74-99) mg/dL Plasma Lactic Acid Carlos Manuel 2.4 H* (0.7-2.0) mmol/L Total Bilirubin (0.2-1.3) mg/dL Urine Appearance (Clear) Urine Protein (Negative) Urine Nitrite (Negative) Ur Leukocyte Esterase (Negative) Urine WBC (0-5) /hpf Urine Bacteria (None) /hpf Hyaline Casts (0-2) /lpf Urine Mucus (None) /hpf Assessment and Plan Assessment: Possible fall at half-way Acute kidney injury Possible diarrhea on admission, could be viral with associated dehydration looks improved now we will keep monitoring Asymptomatic bacteriuria rather than UTI as patient with no significant symptoms Left shoulder tenderness and x-ray showing severe osteoarthrosis Cerebral palsy. Patient is poor historian Plan: I left a message for the sister to call back we will try to contact and talk to her later Continue with gentle IV hydration Check a bladder scan Recheck urine analysis We tried to contact the sister. Patient also has tell us to contact her sister but no success so far. Will check for PT/OT Labs and medication were reviewed.. Continue same treatment. Continue with symptomatic treatment. Resume home medication. Monitor labs and vitals. DVT and GI prophylaxis. Further recommendations as per clinical course of the patient DVT prophylaxis: Subcutaneous heparin GI Prophylaxis: Pepcid PT/OT: Pending Prognosis is guarded
[2024-08-28] MEDS: POTASSIUM CHLORIDE ER 20 MEQ TAB.ER PO STA ×2 (09:29→12:37)
[2024-08-28] MEDS: PANTOPRAZOLE 40 MG/10 ML VIAL IV SCH (09:33)
--- NOTE | 2024-08-28 11:45 | P.NPCON ---
History of Present Illness - Reason for Consult acute renal failure - History of Present Illness Reason for consultation: Acute kidney injury History of present is: Patient is 83-year-old female seen in renal consultation for acute kidney injury. Patient's creatinine admission was 1.54 and is 1.42 today. Creatinine noted to be 1.1 in July 2018. Patient was brought to the hospital due to altered mental status. She was noted to be agitated and violent with the staff where she resides. Patient is a poor historian. I do not see any home medications on her medication list. She is currently receiving normal saline at 75 cc an hour. She did receive a liter bolus in the ER. Hemodynamically st able. She is on room air. Afebrile. Chest x-ray showed no acute cardiopulmonary process. Brain CT showed no acute intracranial process she has been voiding per the RN. She does not have a [place] catheter. It is noted that she fell at her snf and also was having diarrhea. Vital signs are stable. General: No acute distress. HEENT: Head exam is unremarkable. LUNGS: No audible rhonchi or wheezes. HEART: Rate and Rhythm are regular. ABDOMEN: No distention. EXTREMITITES: No edema. Past Medical History Past Medical History: Hypertension Additional Past Medical History / Comment(s): cerebral palsy History of Any Multi-Drug Resistant Organisms: None Reported Past Surgical History: Cholecystectomy, Hysterectomy Additional Past Surgical History / Comment(s): tumor removal, Past Psychological History: No Psychological Hx Reported Smoking Status: Never smoker Past Alcohol Use History: None Reported Past Drug Use History: None Reported Medications and Allergies Home Medications Medication Instructions Recorded Confirmed Type No Known Home Medications 08/28/24 08/28/24 History Allergies Allergy/AdvReac Type Severity Reaction Status Date / Time morphine AdvReac Nausea & Verified 08/28/24 09:20 Vomiting Physical Exam Vitals: Vital Signs Temp Pulse Pulse Resp BP BP Pulse Ox 08/28/24 09:34 82 20 97 08/28/24 08:04 82 20 104/84 96 08/28/24 02:00 98.3 F 76 18 129/85 98 08/27/24 18:52 80 18 157/75 98 08/27/24 16:17 87 20 97 Intake and Output 08/27/24 08/28/24 08/28/24 22:59 06:59 14:59 Intake Total 440 Balance 440 Intake: Oral 440 Other: # Voids 5 Weight 79.379 kg Results - Lab Results Most recent lab results Calcium 9.1 mg/dL (8.4-10.2) 08/28/24 07:54 Phosphorus 3.0 mg/dL (2.5-4.5) 08/27/24 17:36 Magnesium 1.9 mg/dL (1.6-2.3) 08/27/24 17:36 08/27/24 17:36 08/28/24 07:54 Assessment and Plan Plan: Assessment: 1. Acute kidney injury secondary to ATN secondary to hypovolemia. Creatinine 1.54 on admission and is 1.42 today. Creatinine 1.1 in July 2018. UA suggestive of UTI. 2. Acute cystitis on antibiotics. 3. Hypokalemia from poor intake. Replaced. 4. Metabolic acidosis secondary to acute kidney injury, lactic acidosis and IV fluids. 5. Altered mental status possibly from UTI. Plan: Change IV fluids to isotonic bicarb drip. Potassium replaced. Follow-up cultures. Avoid nephrotoxins. Continue to monitor renal function and urine output. Check renal ultrasound. Thank you for the consultation. I will continue to follow the patient with you during her hospital stay.
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
[2024-08-28] MEDS: DEXTROSE 5% IN WATER 1,000 ML with SODIUM BICARB (1 MEQ/ML) 150 ML IV SCH (13:08)
[2024-08-28] MEDS: HYDROcodone/APAP 5-325MG 1 EACH TAB PO PRN (16:46)
[2024-08-28] MEDS: QUEtiapine 25 MG TAB PO SCH (22:28)
[2024-08-29 09:00] LABS: African American GFR (CKD) 48 (>60 ml/min/1.73 sqM); Anion Gap 6 mmol/L; Blood Urea Nitrogen 20 mg/dL (7-17); Calcium 8.4 mg/dL (8.4-10.2); Carbon Dioxide 25 mmol/L (22-30); Chloride 106 mmol/L (98-107); Glucose 98 mg/dL (74-99); Magnesium 1.8 mg/dL (1.6-2.3); Non-African American GFR(CKD) 41 (>60 ml/min/1.73 sqM); Potassium 3.2 mmol/L (3.5-5.1); Sodium 137 mmol/L (137-145)
[2024-08-29] MEDS ORDERED: Magnesium Replacement Protocol 1 EACH MISC MISCELLANE PRN (10:43)
[2024-08-29 10:48] LABS: Basophils # (A) 0.02 X 10*3/uL (0.00-0.10); Basophils % (A) 0.3 %; Eosinophils % (A) 1.4 %; HCT 34.1 % (37.2-46.3); HGB 11.6 g/dL (12.0-15.0); Lymphocytes # (A) 2.07 X 10*3/uL (0.90-5.00); Lymphocytes % (A) 28.7 %; MCH 29.7 pg (27.0-32.0); MCV 87.2 FL (80.0-97.0); Mean Platelet Volume 9.3 FL (9.5-12.2); Monocytes # (A) 0.62 X 10*3/uL (0.20-1.00); Monocytes % (A) 8.6 %; NRBC Per 100 WBC 0 X 10*3/uL (0.00-0.01); Neutrophils # (A) 4.36 X 10*3/uL (1.80-7.70); Neutrophils % (A) 60.4 %; Platelet Count 232 X 10*3/uL (140-440); RBC 3.91 X 10*6/uL (4.10-5.20); RDW 13.6 % (11.5-14.5); WBC 7.21 X 10*3/uL (4.50-10.00)
--- NOTE | 2024-08-29 11:08 | P.PN ---
Subjective Patient is seen in follow-up for acute kidney injury. Renal function better. Patient is not a very reliable historian but states she wants to go home. Vital signs are stable. General: No acute distress. HEENT: Head exam is unremarkable. LUNGS: No audible rhonchi or wheezes. HEART: Rate and Rhythm are regular. ABDOMEN: Nontender. EXTREMITITES: No edema. Objective - Vital Signs Vital signs: Vital Signs Temp 97.5 F L 08/29/24 07:02 Pulse 69 08/29/24 07:02 Resp 19 08/29/24 07:02 BP 119/67 08/29/24 07:02 Pulse Ox 98 08/29/24 07:02 FiO2 Intake & Output 08/28/24 08/29/24 08/29/24 18:59 06:59 18:59 Output Total 531 Balance -531 Weight 79.379 kg Output: Post Void Residual 531 Other: Voiding Method Toilet Bedside Commode # Voids 1 - Labs CBC & Chem 7: 08/29/24 07:57 08/29/24 07:57 Labs: Abnormal Lab Results - Last 24 Hours (Table) 08/29/24 08/29/24 Range/Units 07:57 07:57 RBC 3.91 L (4.10-5.20) X 10*6/uL Hgb 11.6 L (12.0-15.0) g/dL Hct 34.1 L (37.2-46.3) % MPV 9.3 L (9.5-12.2) FL Potassium 3.2 L (3.5-5.1) mmol/L BUN 20 H (7-17) mg/dL Creatinine 1.22 H (0.52-1.04) mg/dL Microbiology - Last 24 Hours (Table) 08/27/24 07:45 Urine Culture - Preliminary Urine,Clean Catch Gram Neg Bacilli Assessment and Plan Plan: Assessment: 1. Acute kidney injury secondary to ATN secondary to hypovolemia. Creatinine 1.54 on admission and is 1.2 to today. Creatinine 1.1 in July 2018. UA suggestive of UTI. Kidneys noted to be atrophic with mild bilateral hydronephrosis. 2. Acute cystitis on antibiotics. Urine culture positive for gram-negative bacilli. 3. Hypokalemia from poor intake and intracellular shifting from IV bicarb. 4. Metabolic acidosis secondary to acute kidney injury, lactic acidosis and IV fluids. 5. Altered mental status possibly from UTI. 6. Bilateral hydronephrosis. Urology consulted. Plan: Stop bicarb drip. Add normal saline for maintenance fluids. Potassium replaced. Avoid nephrotoxins. Continue to monitor renal function and urine output.
[2024-08-29] MEDS: MAGNESIUM SULFATE-D5W PMX 1 GM in DEXTROSE/WATER 1 100ML.BAG IVPB ONE (12:48)
[2024-08-29] MEDS: POTASSIUM CHLORIDE ER 20 MEQ TAB.ER PO STA (12:48)
[2024-08-29] MEDS: SODIUM CHLORIDE 0.9% 1,000 ML IV SCH (12:48)
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
--- NOTE | 2024-08-29 18:34 | CT ---
EXAMINATION TYPE: CT abdomen pelvis wo con DATE OF EXAM: 08/29/2024 6:24 PM COMPARISON: Ultrasound 08/20/2019 CLINICAL INDICATION: Female, 83 years old with history of hydronephrosis on us, uti; Hydronephrosis o n US, UTI. TECHNIQUE: Axial CT abdomen pelvis wo con;Sagittal and coronal reformats were created on a separate workstation. Contrast used: mL of , (none if empty) Oral contrast used: without Oral Contrast (none if empty) CT DLP: 611.7 mGycm, Automated exposure control for dose reduction was used. FINDINGS: LOWER CHEST: Unremarkable ABDOMEN LIVER: Unremarkable GALLBLADDER AND BILE DUCTS: The gallbladder is surgically absent. PANCREAS: Unremarkable. SPLEEN: Unremarkable. ADRENAL GLANDS: Unremarkable. KIDNEYS AND URETERS: Suspected extrarenal pelves bilaterally. No evidence for hydronephrosis. No evid ence of hydronephrosis or renal calculus. The ureters are unremarkable. PELVIS BLADDER: No evidence for wall thickening or mass given limitations of exam. REPRODUCTIVE: The uterus is surgically absent. ABDOMEN & PELVIS STOMACH AND BOWEL: No evidence of bowel obstruction. The appendix is normal. PERITONEUM/RETROPERITONEUM: No evidence of pneumoperitoneum or free fluid. VASCULATURE: Mild atherosclerotic calcifications are present throughout the abdominal aorta and its b ranches. No evidence of aortic aneurysm. MUSCULOSKELETAL: No acute osseous abnormalities. Moderate disc degeneration changes are present throu ghout the thoracolumbar spine. LYMPH NODES: No gross evidence for lymphadenopathy. SOFT TISSUE/ABDOMINAL WALL: Unremarkable IMPRESSION: 1. Suspected extrarenal pelves bilaterally. No evidence for hydronephrosis. No obstructing calculus visualized. Findings could be confirmed with CT urogram in an outpatient setting 2. Colonic diverticulosis. 3. Postcholecystectomy changes. [facility], , 08/29/2024 6:32 PM
--- NOTE | 2024-08-29 19:53 | P.PN ---
Subjective Progress Note Date: 08/29/24 This is a pleasant 83 years old female with past medical history of multiple medical problems. Patient has history of cerebral palsy. She is from [facility]. She was brought because of fall and possible diarrhea for 2 days. When I asked the patient why she came to the hospital she said I do not know maybe I fell Patient can of poor historian, she does not know where she is but she can tell it is 2024. She thought the president is ley, patient also have muffled speech related to her history of cerebral palsy which limits her ability to communicate. However patient calm and follow commands easily. She is little agitated. She denies any specific symptoms. No chest pain or dyspnea. No GI symptoms she denies diarrhea abdominal pain or vomiting although on admission states that she has diarrhea. Also she denies urinary complaint like urgency or dysuria. No headache or dizziness or new weakness or numbness Patient denies smoking or illicit drugs Patient sitting at the bed age, slightly agitated and anxious and she keeps her left upper extremity hanging lower than the right side. On admission patient hemodynamically stable and afebrile She has elevated creatinine 1.5 with baseline 0.9 and 1.0. Rest of labs including CBC, BMP, LFT, INR, troponin were unremarkable Urine analysis is slightly abnormal the suspicion of infection is there but patient is asymptomatic Elevated lactic acid at 2.4 came back to normal at 1.1 Chest x-ray is negative Shoulder x-ray showing severe shoulder osteoarthritis EKG showing sinus rhythm at [address]-T changes CT of the brain is negative for acute process Of note the patient has to contact her sister and she remembered her name Mari Hernandez. I called Ms. Guerra her sister and she told me she is in [place] so she cannot come and see her but then the line went off, I called again and left a message to call back 08/29/2024 Patient is evaluated today in follow up on the medical floor. Patient resting in bed comfortably with no acute complaints. Renal ultrasound reveals mild right sided hydronephrosis. Urology was consulted. Bladder scan reveals retention and patient had strait catheterization x 1 with only 100 mls of urinary output. Patient remains on IV ceftriaxone for an acute UTI. Urine culture showing gram negative bacilli pending final cultures. Labs today reveal sodium level 137, potassium 3.2, BUN 20, creatinine 1.22. Magnesium 1.8. Review of Systems Constitutional: Denied any fatigue denied any fever. Cardio vascular: denied any chest pain, palpitations Gastrointestinal: denied any nausea, vomiting, diarrhea Pulmonary: Denied any shortness of breath cough Neurologic denied any new focal deficits All inpatient medications were reviewed and appropriate changes in these medications as dictated in the interval history and assessment and plan. PHYSICAL EXAMINATION: GENERAL: The patient is alert and oriented x2, not in any acute distress. Well developed, well nourished. HEENT: Pupils are round and equally reacting to light. EOMI. No scleral icterus. No conjunctival pallor. Normocephalic, atraumatic. No pharyngeal erythema. No thyromegaly. CARDIOVASCULAR: S1 and S2 present. No murmurs, rubs, or gallops. PULMONARY: Chest is clear to auscultation, no wheezing or crackles. ABDOMEN: Soft, nontender, nondistended, normoactive bowel sounds. No palpable organomegaly. MUSCULOSKELETAL: No joint swelling or deformity. EXTREMITIES: No cyanosis, clubbing, or pedal edema. NEUROLOGICAL: Gross neurological examination did not reveal any focal deficits. SKIN: No rashes. Assessment and Plan Possible fall at retirement Acute kidney injury prerenal Possible diarrhea on admission, could be viral with associated dehydration looks improved now we will keep monitoring. No further reports of diarrhea Asymptomatic bacteriuria rather than UTI as patient with no significant symptoms Left shoulder tenderness and x-ray showing severe osteoarthrosis Cerebral palsy. Patient is poor historian GI prophylaxis DVT prophylaxis Full Code Plan Continue IV ceftriaxone pending final urine culture Urology consultation for the mild right sided hydronephrosis Supplement potassium Repeat Labs in the AM The impression and plan of care has been dictated by Juana Jones, Nurse Practitioner as directed. Dr. Yisel MD I have performed a history and physical examination and medical decision making of this patient, discussed the same with the dictator, and agree with the dictators assessment and plan as written, documented as a scribe. Based on total visit time, I have performed more than 50% of this visit. Objective - Vital Signs Vital signs: Vital Signs Temp 97.1 F L 08/29/24 13:24 Pulse 85 08/29/24 13:24 Resp 17 08/29/24 13:24 BP 146/80 08/29/24 13:24 Pulse Ox 98 08/29/24 13:24 FiO2 Intake & Output 08/28/24 08/29/24 08/29/24 18:59 06:59 18:59 Output Total 531 Balance -531 Weight 79.379 kg Output: Post Void Residual 531 Other: Voiding Method Toilet Bedside Commode # Voids 1 - Labs CBC & Chem 7: 08/29/24 07:57 08/29/24 07:57 Labs: Abnormal Lab Results - Last 24 Hours (Table) 08/29/24 08/29/24 Range/Units 07:57 07:57 RBC 3.91 L (4.10-5.20) X 10*6/uL Hgb 11.6 L (12.0-15.0) g/dL Hct 34.1 L (37.2-46.3) % MPV 9.3 L (9.5-12.2) FL Potassium 3.2 L (3.5-5.1) mmol/L BUN 20 H (7-17) mg/dL Creatinine 1.22 H (0.52-1.04) mg/dL Microbiology - Last 24 Hours (Table) 08/27/24 07:45 Urine Culture - Preliminary Urine,Clean Catch Gram Neg Bacilli Assessment and Plan Time with Patient: Less than 30
[2024-08-29] MEDS: HEPARIN SODIUM,PORCINE 5,000 UNIT/ML 1 ML VIAL SQ SCH (20:08)
[2024-08-29] MEDS: ACETAMINOPHEN TAB 325 MG TAB PO PRN (23:44)
--- NOTE | 2024-08-30 06:17 | P.PN ---
Subjective Progress Note Date: 08/30/24 We were asked to see the patient for hydronephrosis. She can give no valid history SHe is asx. SHe had a ct scan yesterday that doesnot show hydronephrosis. Objective - Vital Signs Vital signs: Vital Signs Temp 97.3 F L 08/30/24 00:56 Pulse 80 08/30/24 00:56 Resp 17 08/30/24 00:56 BP 136/76 08/30/24 00:56 Pulse Ox 97 08/30/24 00:56 FiO2 Intake & Output 08/29/24 08/29/24 08/30/24 06:59 18:59 06:59 Output Total 531 400 Balance -531 -400 Output: Urine 400 Straight 100 Post Void Residual 531 Other: Voiding Method Toilet Bedside Commode Bedside Commode # Voids 1 4 7 - Labs CBC & Chem 7: 08/29/24 07:57 08/29/24 07:57 Labs: Abnormal Lab Results - Last 24 Hours (Table) 08/29/24 08/29/24 Range/Units 07:57 07:57 RBC 3.91 L (4.10-5.20) X 10*6/uL Hgb 11.6 L (12.0-15.0) g/dL Hct 34.1 L (37.2-46.3) % MPV 9.3 L (9.5-12.2) FL Potassium 3.2 L (3.5-5.1) mmol/L BUN 20 H (7-17) mg/dL Creatinine 1.22 H (0.52-1.04) mg/dL Microbiology - Last 24 Hours (Table) 08/27/24 07:45 Urine Culture - Final Urine,Clean Catch Escherichia coli Assessment and Plan Assessment: Impression: extrarenal pelves,bilateral. no evidence of hydronephrosis Recommendation: No further urological intervention
[2024-08-30 07:16] VITALS: BP 122/74; RESP 14; TEMP 98.6
[2024-08-30 09:02] LABS: BUN/Creat Ratio 13.82 Ratio (12.00-20.00); Blood Urea Nitrogen 15.2 mg/dL (9.0-27.0); Calcium 8.7 mg/dL (8.7-10.3); Carbon Dioxide 24.7 mmol/L (21.6-31.8); Chloride 109 mmol/L (96-109); Glucose 88 mg/dL (70-110); Potassium 4.2 mmol/L (3.5-5.5); Sodium 143 mmol/L (135-145)
--- NOTE | 2024-08-30 10:16 | P.PN ---
Subjective Patient is seen in follow-up for acute kidney injury. Renal function better. Not a reliable historian. Vital signs are stable. General: No acute distress. HEENT: Head exam is unremarkable. LUNGS: No audible rhonchi or wheezes. HEART: Rate and Rhythm are regular. ABDOMEN: Nontender. EXTREMITITES: No edema. Objective - Vital Signs Vital signs: Vital Signs Temp 98.6 F 08/30/24 07:16 Pulse 77 08/30/24 07:16 Resp 14 08/30/24 07:16 BP 122/74 08/30/24 07:16 Pulse Ox 97 08/30/24 07:16 FiO2 Intake & Output 08/29/24 08/30/24 08/30/24 18:59 06:59 18:59 Output Total 400 Balance -400 Output: Urine 400 Straight 100 Other: Voiding Method Bedside Commode Bedside Commode # Voids 4 7 - Labs CBC & Chem 7: 08/29/24 07:57 08/30/24 05:23 Labs: Abnormal Lab Results - Last 24 Hours (Table) 08/29/24 08/30/24 Range/Units 07:57 05:23 RBC 3.91 L (4.10-5.20) X 10*6/uL Hgb 11.6 L (12.0-15.0) g/dL Hct 34.1 L (37.2-46.3) % MPV 9.3 L (9.5-12.2) FL Est GFR (CKD-EPI) 50 L (>=60) Microbiology - Last 24 Hours (Table) 08/27/24 07:45 Urine Culture - Final Urine,Clean Catch Escherichia coli Assessment and Plan Plan: Assessment: 1. Acute kidney injury secondary to ATN secondary to hypovolemia. Creatinine 1.54 on admission and is 1.1 today. Creatinine 1.1 in July 2018. UA suggestive of UTI. Kidneys noted to be atrophic with mild bilateral hydronephrosis. 2. Acute cystitis on antibiotics. Urine culture positive for E. coli. 3. Hypokalemia from poor intake and intracellular shifting from IV bicarb. Re placed. Better. 4. Metabolic acidosis secondary to acute kidney injury, lactic acidosis and IV fluids. Status post bicarb drip. Improved. 5. Altered mental status possibly from UTI. 6. Bilateral hydronephrosis. Seems to be extrarenal pelves. Seen by urology. No interventions planned. Plan: Maintain gentle IV hydration. Avoid nephrotoxins. Continue to monitor renal function and urine output. Follow-up outpatient 2 weeks postdischarge.
[2024-08-30 10:22] VITALS: PULSE 79
--- NOTE | 2024-08-31 10:32 | CDI ---
Documentation Clarification Form Date: 08/31/2024 From: Renee Haley Admit Date: 08/29/2024 07:42:00 AM Patient Name: Renee Persaud Visit Number: [id number] Discharge Date: 08/30/2024 12:21:00 PM ATTENTION: The Clinical Documentation Specialists (CDI) and [facility] Coding Staff appreciate your assistance in clarifying documentation. Please respond to the clarification below the line at the bottom and electronically sign. The CDI & [facility] Coding staff will review the response and follow-up if needed. Please note: Queries are made part of the Legal Health Record. If you have any questions, please contact the author of this message via ITS. Doctor/Provider: Harleen Farris, Your patient has the documented symptom of Altered Mental Status in the ED Note, 08/25 Consult and PNs.. Additional clarification regarding the etiology/cause of this symptom is requested. History/Risk Factors: Cerebral palsy, acidosis, ATN, HTN, hypovolemia, dehydration, hypokalemia Clinical Indicators: Patient subsequently admitted to medicine for alteredmental statuswith UTI. Labs: Urine: cloudy, protein 1+, Nitrite positive, Leukocyte Esterase small, WBC 22, casts 27, culture: E Coli US: There appears to be mildhydronephrosison the right. ABDPELWO: Suspected extrarenal pelves bilaterally. No evidence forhydronephrosis. No obstructingcalculusvisualized. Treatment: IV Ceftriaxone sodium, then dcd on Ceftin 250 mg PO BID for 3days Please clarify the etiology of the symptom of Altered Mental Status: [ x] altered mental status with metabolic encephalopathy due to acute urinary tract infection, present on admission [ ] Delirium (specify cause): [ ] Dementia (if know, specify Type and if with/without Behavioral Disturbance) [ ] Other condition (please specify) [ ] Unable to determine MTDD
--- NOTE | 2024-08-31 10:44 | CDI ---
Documentation Clarification Form Date: 08/31/2024 From: Renee Haley Admit Date: 08/29/2024 07:42:00 AM Patient Name: Renee Persaud Visit Number: [id number] Discharge Date: 08/30/2024 12:21:00 PM ATTENTION: The Clinical Documentation Specialists (CDI) and [facility] Coding Staff appreciate your assistance in clarifying documentation. Please respond to the clarification below the line at the bottom and electronically sign. The CDI & [facility] Coding staff will review the response and follow-up if needed. Please note: Queries are made part of the Legal Health Record. If you have any questions, please contact the author of this message via ITS. Doctor/Provider: Harleen Farris, [insert diagnosis] is documented [location, date], but is not noted in subsequent documentation. Clarification is requested. History/Risk Factors: Cerebral palsy, acidosis, ATN, HTN, hypovolemia, dehydration, hypokalemia Clinical Indicators: Patient subsequently admitted to medicine for altered mental status with UTI. Per Dr Amato Assessment: UTIwithsepsisbeing treated. WBC 8.7, Neutrophils 68, lactic acid 1.1, lactic AC sepsis Rflx positive Treatment: IV Ceftriaxone sodium, then dcd on Ceftin 250 mg PO BID for 3 days Please clarify if the [insert diagnosis] is: [ x ] Sepsis due to UTI E coli confirmed, remains under treatment [ ] Sepsis ruled out [ ] Other condition, please specify [ ] Unable to determine MTDD
--- NOTE | 2024-09-03 08:51 | P.DS ---
Providers Date of admission: 08/29/24 07:42 Attending physician: Harleen Farris Consults: 08/28/24 09:22 Consult Physician Routine Consulting Provider: Richard Reinoso Consult Reason/Comments: wade Do you want consulting provider notified?: Yes 08/29/24 11:07 Consult Physician Routine Consulting Provider: Mikael Amato Consult Reason/Comments: hydronephrosis Do you want consulting provider notified?: Yes Primary care physician: Stated None Hospital Course: Final Diagnosis Possible fall at shelter Acute kidney injury prerenal Possible diarrhea on admission, could be viral with associated dehydration looks improved now we will keep monitoring. No further reports of diarrhea acute UTI without sepsis present on admission pansensitive e.coli on urine culture. Left shoulder tenderness and x-ray showing severe osteoarthrosis Cerebral palsy. Patient is poor historian Discharge Disposition Patient is stable for return to the shelter with 3 more days of oral antibiotics recommended. Repeat BMP in 2 to 3 days to monitor renal function. Follow up with nephrology. Hospital Course This is a pleasant 83 years old female with past medical history of multiple medical problems. Patient has history of cerebral palsy. She is from [facility]. She was brought because of fall and possible diarrhea for 2 days. She is a poor historian but was complaining of some burning with urination. Concern for urinary retention. She had lactic acidosis on admission 2.4. Creatinine was at 1.5 on admission which is above normal baseline of 0.9 to 1.0. Urine analysis is slightly abnormal the suspicion of infection is there. Chest x-ray is negative. Shoulder x-ray showing severe shoulder osteoarthritis. EKG showing sinus rhythm at [address]-T changes. CT of the brain is negative for acute process. Patient was started on IV ceftriaxone and admitted to the hospital with nephrology consult. Renal ultrasound reveals mild right sided hydronephrosis. Urology was consulted. Bladder scan reveals retention and patient had strait catheterization x 1 with only 100 mls of urinary output. Patient remains on IV ceftriaxone for an acute UTI. Urine culture comes back with pansensitive E.Coli. Had an abdominal pelvis CT with no evidence for hydronephrosis. There is no obstructing calculus visualized. White blood cell count normal at 7.21. hgb 11.6. Sodium 143, potassium 4.2 BUN 15.2, creatinine 1.1. Magnesium 2.0. Patient is awake alert oriented x 3. She has no acute complaints at this time. Patient will be discharged back to the shelter with 3 more days of oral antibiotics. Please see medication reconciliation for a list of current medications. Thank you for allowing us to participate in the care of this patient. The impression and plan of care has been dictated by Juana Jones, Nurse Practitioner as directed. Dr. Yisel MD I have performed a history and physical examination and medical decision making of this patient, discussed the same with the dictator, and agree with the dictators assessment and plan as written, documented as a scribe. Based on total visit time, I have performed more than 50% of this visit. Patient Patient Condition at Discharge: Stable Plan - Discharge Summary Discharge Rx Participant: No New Discharge Prescriptions: New Cefuroxime [Ceftin] 250 mg PO BID 3 Days #6 tab Discharge Medication List Cefuroxime [Ceftin] 250 mg PO BID 3 Days #6 tab 08/30/24 [Rx] Follow up Appointment(s)/Referral(s): None,Stated [Primary Care Provider] - 1-2 days Richard Reinoso DO [STAFF PHYSICIAN] - 09/28/24 3:20 pm Ambulatory/Diagnostic Orders: Basic Metabolic Panel [LAB.AMB] Time Frame: 3 Days, Location: None Selected Magnesium [LAB.AMB] Location: None Selected Activity/Diet/Wound Care/Special Instructions: Set up wheelchair van at discharge to [id number], [place] [address]. Have the bill sent to her sister Mari at [address], [place] [address]. Discharge Disposition: HOME WITH HOME HEALTH SERVICES
== END 2024-08-30 12:21 | disposition home health service (06) | DRG 871 ==
LOC: EC 16:16 → 4SSUR 20:25 → INTOOBSV 20:25 → 4SSUR 22:47 → OBSVTOIN 08-29 07:42 → 4SSUR 08-29 23:31
PROVIDERS: ADMIT Hospitalist; ATTEND Hospitalist
DX: A41.51 Sepsis due to Escherichia coli [E. coli] (principal); G93.41 Metabolic encephalopathy; N17.0 Acute kidney failure with tubular necrosis; G80.9 Cerebral palsy, unspecified; I10 Essential (primary) hypertension; N30.00 Acute cystitis without hematuria; E87.20 Acidosis, unspecified; E86.0 Dehydration; B96.20 Unspecified Escherichia coli [E. coli] as the cause of diseases classified elsewhere; E86.1 Hypovolemia; E87.6 Hypokalemia; M19.012 Primary osteoarthritis, left shoulder; W19.XXXA Unspecified fall, initial encounter; Z88.5 Allergy status to narcotic agent
CPT/HCPCS: 36415; 70450; 71046; 74176; 76770; 80048; 80053; 81001; 82550; 83605; 83735; 84100; 84484; 85025; 85610; 85730; 87077; 87086; 87186; 93005; 96361; 96367; 96374; 96375; 99285